=== PATIENT | male | born 1980 | race Caucasian/White ===

== ENCOUNTER 2017-02-18 09:45 | Emergency (ER) | payer BC, OTHER ==
[2017-02-18] MEDS ORDERED: IOHEXOL 300 MG/ML 75 ML VIAL. IV ONE (10:15)
[2017-02-18] MEDS ORDERED: methylPREDNISolone SOD SUCC PF 125 MG/2 ML VIAL. IV ONE (10:30)
[2017-02-18] MEDS ORDERED: CLINDAMYCIN 900MG PREMIX 50 ML IV ONE (10:30)
[2017-02-18 10:47] LABS: BASO # 0.2 x10^3/uL (0.0-0.2); BASO % 1 % (0-3); EOS # 0.3 x10^3/uL (0.0-0.7); EOS % 2 % (0-3); HEMATOCRIT 50.9 % (39.0-53.0); LYMPH # 2.6 x10^3/uL (1.0-4.8); LYMPH % 18 % (24-48); MEAN CORPUSCULAR HEMOGLOBIN 33 pg (25-35); MEAN CORPUSCULAR HGB CONC 35 g/dL (31-37); MEAN CORPUSCULAR VOLUME 94 fL (79-100); MONO # 1.1 x10^3/uL (0.0-1.1); MONO % 8 % (0-9); NEUT # 10.3 x10^3uL (1.8-7.7); NEUT % 71 % (31-73); PLATELET COUNT 320 x10^3/uL (140-400); RED BLOOD COUNT 5.42 x10^6/uL (4.30-5.70); RED CELL DISTRIBUTION WIDTH 13.7 % (11.5-14.5); WHITE BLOOD COUNT 14.4 x10^3/uL (4.0-11.0)
--- NOTE | 2017-02-18 10:50 | RAD ---
EXAM: Maxillofacial bone CT with intravenous contrast. HISTORY: Right subinsular swelling. TECHNIQUE: Computed tomographic images of the maxillofacial bones were obtained following the admission of 75 cc Omnipaque 300 intravenous contrast. One or more of the following individualized dose reduction techniques were utilized for this examination: 1. Automated exposure control. 2. Adjustment of the mA and/or kV according to patient size. 3. Use of iterative reconstruction technique. COMPARISON: None. FINDINGS: There is edema involving the right anterior mandibular and submandibular soft tissues and there is mild enlargement of right submental and submandibular lymph nodes. There is lucency surrounding the roots of the right first and second mandibular molars, secondary to periapical abscesses. There is an overlying defect within the outer alveolar cortex of the right mandible which communicates with a 2.2 cm region of hypodensity within the overlying soft tissues. These teeth are fractured or contained large caries. There is also lucency surrounding the roots of a partially absent left third mandibular molar. There are a few additional dental caries. The orbits are unremarkable. There is mild ethmoid sinus mucosal thickening. There is under pneumatization of the right frontal sinus and left mastoid air cells, a normal variant. The visualized portions of the brain and calvarium are unremarkable. The airway is widely patent. There is no hemodynamically significant stenosis within the carotid or vertebral arteries. There is cervical kyphosis. There is degenerative endplate remodeling with posterior central disc osteophyte complexes at C4-5 and C5-C6. IMPRESSION: Cellulitis within the right anterior mandibular and submental or soft tissues with associated mild segmental and submandibular lymphadenopathy, likely secondary to a 2.2 cm soft tissue small abscess communicating with periapical abscesses at the roots of the adjacent right and lower molars via a defect within the right mandibular outer alveolar cortex. These teeth are fractured or contain large caries. There are additional fractured teeth and dental caries and there is also lucency surrounding the roots of a partially absent left third lingular molar due to a periapical abscess.
--- NOTE | 2017-02-18 10:59 | PHYS DOC ---
General Chief Complaint: DENTAL PROBLEM Stated Complaint: DENTAL ABCESS Time Seen by MD: 09:53 Source: patient Exam Limitations: no limitations Problems: History of Present Illness Initial Comments Patient is a 36-year-old male who comes in the ED complaining of right lower molar pain and facial swelling. Patient states that earlier this week he developed a toothache associated with some previously fractured molars in his right lower jaw. He states that beginning last night he developed right sided lower jaw swelling which increased significantly overnight. He's had severe pain associated with the swelling in the affected teeth described as throbbing and severe worse with eating better with rest. He denies fever chills sweats or body aches, over-the- counter medications have not been controlling it. He has dental insurance and plans to follow up with dentist next week he denies difficulty with swallowing or breathing associated with the swelling. On arrival patient is afebrile he's also noted to be tachycardic 101 bpm patient admits to smoking cigarettes immediately prior to presenting to the emergency department. Patient also states that he took "an antibiotic" given to him by a friend, he describes as green and 4 times daily (likely cephalexin). Due to the severity of swelling and tachycardia lab and CT evaluation will be undertaken and the patient will receive a normal saline IV bolus 1 L as well as Solu-Medrol 125 mg IV and clindamycin 900 mg IV. Timing/Duration: gradual, last week Severity: severe Location: mouth, facial, dental Prearrival Treatment: over the counter meds Modifying Factors: improves with other Associated Symptoms: facial pain/swelling, tooth pain Allergies: Coded Allergies: No Known Drug Allergies (Unverified , 02/18/17) Past Medical History Medical History: other (factor V Leiden deficiency) Surgical History: noncontributory Social History Smoker: cigarettes Alcohol: heavy Drugs: none Constitutional: denies chills, denies diaphoresis, denies fever, denies malaise Eyes: denies blindness, denies blurred vision, denies drainage, denies decreased acuity Ears: denies dizziness, denies pain, denies tinnitus Nose: denies clots, denies congestion, denies epistaxis Mouth: see HPI Throat: denies pain, denies swelling, denies discharge, denies neck stiffness, denies painful swallowing, denies difficulty with fluids Respiratory: denies cough, denies shortness of breath, denies wheezing Cardiovascular: denies chest pain, denies palpitations, denies syncope Gastrointestinal: denies abdominal pain, denies nausea, denies vomiting Musculoskeletal: denies back pain, denies muscle pain, denies neck pain Neurological: denies headache, denies numbness, denies paresthesia Physical Exam General Appearance: WD/WN, no apparent distress Eyes: bilateral eye normal inspection, bilateral eye PERRL, bilateral eye EOMI Ears: bilateral ear auricle normal, bilateral ear canal normal Nose: normal inspection Mouth/Throat: dental tenderness, mandibular swelling, other (right lower molar caries with gingival swelling and tenderness no purulence noted. 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 PHYSICIAN: BANDAR LAM DO REASON: R mandibular swelling r/o osteomyelitis PROCEDURE: CT MAXILLOFACIAL W/CONTRAST EXAM: Maxillofacial bone CT with intravenous contrast. HISTORY: Right subinsular swelling. TECHNIQUE: Computed tomographic images of the maxillofacial bones were obtained following the admission of 75 cc Omnipaque 300 intravenous contrast. One or more of the following individualized dose reduction techniques were utilized for this examination: 1. Automated exposure control. 2. Adjustment of the mA and/or kV according to patient size. 3. Use of iterative reconstruction technique. COMPARISON: None. FINDINGS: There is edema involving the right anterior mandibular and submandibular soft tissues and there is mild enlargement of right submental and submandibular lymph nodes. There is lucency surrounding the roots of the right first and second mandibular molars, secondary to periapical abscesses. There is an overlying defect within the outer alveolar cortex of the right mandible which communicates with a 2.2 cm region of hypodensity within the overlying soft tissues. These teeth are fractured or contained large caries. There is also lucency surrounding the roots of a partially absent left third mandibular molar. There are a few additional dental caries. The orbits are unremarkable. There is mild ethmoid sinus mucosal thickening. There is under pneumatization of the right frontal sinus and left mastoid air cells, a normal variant. The visualized portions of the brain and calvarium are unremarkable. The airway is widely patent. There is no hemodynamically significant stenosis within the carotid or vertebral arteries. There is cervical kyphosis. There is degenerative endplate remodeling with posterior central disc osteophyte complexes at C4-5 and C5-C6. IMPRESSION: Cellulitis within the right anterior mandibular and submental or soft tissues with associated mild segmental and submandibular lymphadenopathy, likely secondary to a 2.2 cm soft tissue small abscess communicating with periapical abscesses at the roots of the adjacent right and lower molars via a defect within the right mandibular outer alveolar cortex. These teeth are fractured or contain large caries. There are additional fractured teeth and dental caries and there is also lucency surrounding the roots of a partially absent left third lingular molar due to a periapical abscess. DICTATED AND SIGNED BY: WILBERT CURRY MD DATE: 02/18/17 1036 CC: VELMA TINOCO; BANDAR LAM DO ~ Mild leukocytosis and elevated ALT/AST noted, lactic acid and sedimentation rate normal. 1217: I discussed findings at length with the patient. I offered him observation admission for intravenous antibiotics and steroids and monitoring. Patient refuses stating he would like to try conservative therapy at home initially. I discussed signs and symptoms to monitor as well as urgent indications to return to the department. I discussed [id number] and prescription medications, smoking cessation, and close follow-up on Monday with Chaitanya Tinoco. I discussed time off work and [facility] dental evaluation. Patient's questions were answered to his satisfaction and he expressed agreement and understanding with the treatment plan. Impression: Dental abscess Facial cellulitis Elevated liver function tests Leukocytosis Tobaccoism Departure Time of Disposition: 12:04 Disposition: 01 HOME, SELF-CARE Diagnosis: dental abscess with facial cellulitis, tobaccoism, Condition: STABLE Patient Instructions: Dental Abscess Additional Instructions: Aggressive hydration with gatorade or water. Listerine gargles three times daily after brushing/flossing. OTC ibuprofen for baseline pain. Stop smoking, seek medical assistance if necessary. No alcohol with pain medications. Rx: augmentin, prednisone, percocet 7.5mg #20 Take medications separately and with food to avoid GI upset, nausea, and vomitting. OTC stool softeners to avoid opiate associated constipation. OTC probiotics or cultured yogurt (danimals, gogurt) daily to replace gut rowdy and avoid severe diarrhea from augmentin. Off work thru Monday. Follow up with Lola Tinoco Monday for recheck. You must follow up with dentist to resolve this condition, call Monday morning to schedule next available appointment. Return to ED with new or changing symptoms. BANDAR LAM DO Feb 18, 2017 10:59
[2017-02-18 11:03] LABS: ALBUMIN 3.9 g/dL (3.4-5.0); CALCIUM 9.3 mg/dL (8.5-10.1); CREATININE 0.9 mg/dL (0.7-1.3); GFR 96.6; TOTAL BILIRUBIN 0.9 mg/dL (0.2-1.0); TOTAL PROTEIN 7.8 g/dL (6.4-8.2)
[2017-02-18 11:04] LABS: POTASSIUM 4.4 mmol/L (3.5-5.1)
[2017-02-18 11:55] LABS: SEDIMENTATION RATE 8 (0-15)
[2017-02-18] MEDS ORDERED: OXYC-327 PO (12:03)
[2017-02-18] MEDS ORDERED: PRED20TA PO (12:03)
[2017-02-18] MEDS ORDERED: AMOX1TAB61 PO (12:03)
[2017-02-18 12:13] VITALS: BP 142/82
== END 2017-02-18 12:20 | disposition home or self-care (01) ==
LOC: ER 09:45
DX: K04.7 Periapical abscess without sinus (principal); L03.211 Cellulitis of face; F17.210 Nicotine dependence, cigarettes, uncomplicated; R79.89 Other specified abnormal findings of blood chemistry; D72.829 Elevated white blood cell count, unspecified; D68.2 Hereditary deficiency of other clotting factors; F10.10 Alcohol abuse, uncomplicated
CPT/HCPCS: 36415; 70487; 80053; 83605; 85025; 85651; 87040; 96365; 96375; 96376; 99285; J2930; J3010; J3490

== ENCOUNTER 2017-11-12 13:20 | Emergency (ER) | payer BC ==
[~2017-11-12] VITALS: Ht 180.3 cm; Wt 104.3 kg
[~2017-11-12 13:20] MED LIST: AMOX1TAB61 PO; OXYC-327 PO; PRED20TA PO
--- NOTE | 2017-11-12 13:59 | EKG ---
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
[2017-11-12 14:08] LABS: BASO # 0.1 x10^3/uL (0.0-0.2); BASO % 1 % (0-3); EOS # 0.3 x10^3/uL (0.0-0.7); EOS % 3 % (0-3); HEMATOCRIT 53.8 % (39.0-53.0); HEMOGLOBIN 18.8 g/dL (13.0-17.5); LYMPH # 2.7 x10^3/uL (1.0-4.8); LYMPH % 21 % (24-48); MEAN CORPUSCULAR HEMOGLOBIN 34 pg (25-35); MEAN CORPUSCULAR HGB CONC 35 g/dL (31-37); MEAN CORPUSCULAR VOLUME 96 fL (79-100); MONO # 1.3 x10^3/uL (0.0-1.1); MONO % 10 % (0-9); NEUT # 8.7 x10^3uL (1.8-7.7); NEUT % 66 % (31-73); PLATELET COUNT 306 x10^3/uL (140-400); RED BLOOD COUNT 5.59 x10^6/uL (4.30-5.70); RED CELL DISTRIBUTION WIDTH 13.9 % (11.5-14.5); WHITE BLOOD COUNT 13.2 x10^3/uL (4.0-11.0)
[2017-11-12 14:52] LABS: BARBITURATES NEG (NEG); BENZODIAZEPINES NEG (NEG); CANNABINOIDS POS (NEG); COCAINE NEG (NEG); METHADONE NEG (NEG); OPIATES NEG (NEG); PHENCYCLIDINE NEG (NEG)
[2017-11-12 14:53] LABS: AMPHETAMINE/METHAMPHETAMINE NEG (NEG)
[2017-11-12 15:03] LABS: BACTERIA,URINE 0 /HPF (0-FEW); BILIRUBIN,URINE NEG (NEG); CLARITY,URINE CLEAR; COLOR,URINE ORANGE; GLUCOSE,URINE NEG (NEG); NITRITE,URINE NEG (NEG); RBC,URINE OCC /HPF (0-2); SQUAMOUS EPITHELIAL CELL,UR OCC /LPF; UROBILINOGEN,URINE 2 mg/dL (0.2 mg/dL); WBC,URINE RARE /HPF (0-4)
[2017-11-12] MEDS ORDERED: IV NORMAL SALINE 1,000ML 1,000 ML IV ONE (15:30)
[2017-11-12] MEDS ORDERED: IPRATRPIUM/ALBUTEROL 0.5/2.5MG 3 ML NEBU. NEB ONE (15:30)
[2017-11-12] MEDS ORDERED: KETOROLAC 30 MG/ML VIAL. IV ONE (15:30)
[2017-11-12 15:37] LABS: ALBUMIN 3.8 g/dL (3.4-5.0); ALBUMIN/GLOBULIN RATIO 0.8 (1.0-1.7); CALCIUM 9.3 mg/dL (8.5-10.1); TOTAL BILIRUBIN 2.1 mg/dL (0.2-1.0); TOTAL PROTEIN 8.4 g/dL (6.4-8.2)
[2017-11-12 15:38] LABS: POTASSIUM 4.4 mmol/L (3.5-5.1)
[2017-11-12] MEDS ORDERED: CONTRAST GIVEN MC PRN (16:15)
[2017-11-12] MEDS ORDERED: IOHEXOL 300 MG/ML 75 ML VIAL. IV ONE (16:30)
--- NOTE | 2017-11-12 16:52 | RAD ---
Examination: CT angiography chest History: History of shortness of breath, history of blood clots, right-sided chest pain Exposure: One or more of the following individualized dose reduction techniques were utilized for this examination: 1. Automated exposure control 2. Adjustment of the mA and/or kV according to patient size 3. Use of iterative reconstruction technique TECHNIQUE: Axial CT angiography images of chest were performed with IV contrast. Coronal and sagittal deformities are performed FINDINGS: The visualized thyroid gland grossly appears unremarkable central airways are patent The heart size grossly appears unremarkable. The caliber of the aorta grossly appears unremarkable There is no evidence of filling defect identified in the main pulmonary arterial trunk. There are multiple filling defects identified in the right lower lobe pulmonary arterial branches. No evidence of filling defects identified in the right upper lobe, right middle lobe, left upper lobe and left lower lobe pulmonary arterial branches There multiple wedge-shaped airspace opacities identified in the right lower lobe of the lung abutting the pleura. No evidence of pleural effusion The visualized liver, spleen, adrenals grossly appears unremarkable Mild degenerative changes thoracic spine IMPRESSION: 1. Multiple filling defects in the right lower lobe pulmonary arterial branches suspicious for multiple pulmonary emboli. There are wedge-shaped airspace opacities identified in the right lower lobe of the lung abutting the pleura probably infarcts. was informed recommendation. Electronically signed by: Jaime Dahl MD (11/12/2017 4:48 PM) [facility]
[2017-11-12] MEDS ORDERED: MORPHINE SULFATE 4 MG/ML DISP.SYRIN. IV ONE (17:00)
--- NOTE | 2017-11-12 17:36 | PHYS DOC ---
Past History Past Medical History: Other Past Surgical History: No Surgical History Alcohol Use: Heavy Drug Use: Marijuana Adult General Chief Complaint Chief Complaint: SHORTNESS OF BREATH HPI HPI 37-year-old male patient with history of factor 5 deficiency and history of previous DVT and PE on Eliquis complaining of right lower chest pain with radiation to his back for the last 2 days as a constant pain episode of shortness of breath [dictation without fever and chills, nausea and vomiting, injury. Patient complaining of increasing of pain with activity and rated his pain 9/10. Patient also complaining of left lower extremity pain at the same time without history of recent immobilization. Patient denies focal neuro deficit, fever and chills, urinary symptoms, diarrhea and constipation. Review of Systems Review of Systems Constitutional: Denies fever or chills [] Eyes: Denies change in visual acuity, redness, or eye pain [] HENT: Denies nasal congestion or sore throat [] Respiratory: Reports dry cough and shortness of breath [] Cardiovascular: No additional information not addressed in HPI [] GI: Denies abdominal pain, nausea, vomiting, bloody stools or diarrhea [] : Denies dysuria or hematuria [] Musculoskeletal: Denies back pain or joint pain [] Integument: Denies rash or skin lesions [] Neurologic: Denies headache, focal weakness or sensory changes [] Endocrine: Denies polyuria or polydipsia [] All other systems were reviewed and found to be within normal limits, except as documented in this note. Current Medications Current Medications Current Medications Medications (Trade) Dose Ordered Sig/Sylvester Start Time Stop Time Status Last Admin Dose Admin Albuterol/ Ipratropium (Duoneb) 3 ml 1X ONCE 11/12/17 15:30 11/12/17 15:34 DC 11/12/17 16:01 3 ML Enoxaparin Sodium (Lovenox 100mg Syringe) 100 mg 1X ONCE 11/12/17 17:45 11/12/17 17:46 Info (Do NOT chart on this entry -- for MONITORING) 1 each PRN DAILY PRN 11/12/17 16:15 11/14/17 16:14 Iohexol (Omnipaque 300 Mg/ml) 75 ml 1X ONCE 11/12/17 16:30 11/12/17 16:31 DC 11/12/17 16:24 75 ML Ketorolac Tromethamine (Toradol) 30 mg 1X ONCE 11/12/17 15:30 11/12/17 15:34 DC 11/12/17 15:52 30 MG Morphine Sulfate (Morphine 4mg Syringe) 4 mg 1X ONCE 11/12/17 17:00 11/12/17 17:01 DC 11/12/17 17:00 4 MG Sodium Chloride 1,000 ml @ 1,000 mls/hr 1X ONCE 11/12/17 15:30 11/12/17 16:29 DC 11/12/17 15:51 1,000 MLS/HR Allergies Allergies Allergies Coded Allergies Type Severity Reaction Last Updated Verified No Known Drug Allergies 02/18/17 No Physical Exam Physical Exam Constitutional: Well developed, well nourished, mild distress, non-toxic appearance. [] HENT: Normocephalic, atraumatic, bilateral external ears normal, oropharynx moist, no oral exudates, nose normal. [] Eyes: PERRLA, EOMI, conjunctiva normal, no discharge. [] Neck: Normal range of motion, no tenderness, supple, no stridor. [] Cardiovascular: Tachycardia, no murmur [] Lungs & Thorax: Bilateral breath sounds clear to auscultation [] Abdomen: Bowel sounds normal, soft, no tenderness, no masses, no pulsatile masses. [] Skin: Warm, dry, no erythema, no rash. [] Back: No tenderness, no CVA tenderness. [] Extremities: No tenderness, no cyanosis, no clubbing, ROM intact, no edema. [] Neurologic: Alert and oriented X 3, normal motor function, normal sensory function, no focal deficits noted. [] Psychologic: Affect normal, judgement normal, mood normal. [] Current Patient Data Vital Signs Vital Signs Date Time Temp Pulse Resp B/P (MAP) Pulse Ox O2 Delivery O2 Flow Rate FiO2 11/12/17 16:40 109 18 140/80 (100) 98 Room Air 11/12/17 13:25 98.1 Lab Results Laboratory Tests Test 11/12/17 13:53 11/12/17 14:27 11/12/17 15:10 White Blood Count 13.2 x10^3/uL (4.0-11.0) H Red Blood Count 5.59 x10^6/uL (4.30-5.70) Hemoglobin 18.8 g/dL (13.0-17.5) H Hematocrit 53.8 % (39.0-53.0) H Mean Corpuscular Volume 96 fL (79-100) Mean Corpuscular Hemoglobin 34 pg (25-35) Mean Corpuscular Hemoglobin Concent 35 g/dL (31-37) Red Cell Distribution Width 13.9 % (11.5-14.5) Platelet Count 306 x10^3/uL (140-400) Neutrophils (%) (Auto) 66 % (31-73) Lymphocytes (%) (Auto) 21 % (24-48) L Monocytes (%) (Auto) 10 % (0-9) H Eosinophils (%) (Auto) 3 % (0-3) Basophils (%) (Auto) 1 % (0-3) Neutrophils # (Auto) 8.7 x10^3uL (1.8-7.7) H Lymphocytes # (Auto) 2.7 x10^3/uL (1.0-4.8) Monocytes # (Auto) 1.3 x10^3/uL (0.0-1.1) H Eosinophils # (Auto) 0.3 x10^3/uL (0.0-0.7) Basophils # (Auto) 0.1 x10^3/uL (0.0-0.2) Urine Collection Type Unknown Urine Color [place] Urine Clarity Clear Urine pH 5.5 Urine Specific [place] 1.020 Urine Protein 30 mg/dl (NEG-TRACE) Urine Glucose (UA) Neg mg/dL (NEG) Urine Ketones (Stick) Neg mg/dL (NEG) Urine Blood Trace (NEG) Urine Nitrite Neg (NEG) Urine Bilirubin Neg (NEG) Urine Urobilinogen Dipstick 2 mg/dL (0.2 mg/dL) Urine Leukocyte Esterase Neg (NEG) Urine RBC Occ /HPF (0-2) Urine WBC Rare /HPF (0-4) Urine Squamous Epithelial Cells Occ /LPF Urine Bacteria 0 /HPF (0-FEW) Urine Mucus Slight /LPF Urine Opiates Screen Neg (NEG) Urine Methadone Screen Neg (NEG) Urine Barbiturates Neg (NEG) Urine Phencyclidine Screen Neg (NEG) Urine Amphetamine/Methamphetamine Neg (NEG) Urine Benzodiazepines Screen Neg (NEG) Urine Cocaine Screen Neg (NEG) Urine Cannabinoids Screen Pos (NEG) Urine Ethyl Alcohol Neg (NEG) D-Dimer (Елена) 4.39 mg/L (0.00-0.50) H Sodium Level 134 mmol/L (136-145) L Potassium Level 4.4 mmol/L (3.5-5.1) Chloride Level 99 mmol/L (98-107) Carbon Dioxide Level 25 mmol/L (21-32) Anion Gap 10 (6-14) Blood Urea Nitrogen 7 mg/dL (8-26) L Creatinine 1.0 mg/dL (0.7-1.3) Estimated GFR (Cockcroft-Gault) 85.0 BUN/Creatinine Ratio 7 (6-20) Glucose Level 92 mg/dL (70-99) Calcium Level 9.3 mg/dL (8.5-10.1) Total Bilirubin 2.1 mg/dL (0.2-1.0) H Aspartate Amino Transferase (AST) 95 U/L (15-37) H Alanine Aminotransferase (ALT) 102 U/L (16-63) H Alkaline Phosphatase 127 U/L (46-116) H Troponin I Quantitative < 0.017 ng/mL (0-0.055) XP-Lgm-E-Type Natriuretic Peptide 45 pg/mL (0-124) Total Protein 8.4 g/dL (6.4-8.2) H Albumin 3.8 g/dL (3.4-5.0) Albumin/Globulin Ratio 0.8 (1.0-1.7) L Ethyl Alcohol Level < 10 mg/dL (0-10) EKG EKG EKG interpreted by me. EKG at 1356 showed sinus rhythm at rate of 93, poor R wave practicing in anteroseptal leads, no acute distress and T-wave abnormalities Radiology/Procedures Radiology/Procedures [[address] [address] IMAGING REPORT Signed PATIENT: SHRUTI SANTACRUZ ACCOUNT: [id number] : 1980 LOCATION: ER AGE: 37 SEX: M EXAM STATUS: PRE ER ORD. PHYSICIAN: JAIRO THIBODEAUX MD REASON: right-sided chest pain with elevation of d-dimer, elevation of li PROCEDURE: CT ANGIOGRAPHY CHEST Examination: CT angiography chest History: History of shortness of breath, history of blood clots, right-sided chest pain Exposure: One or more of the following individualized dose reduction techniques were utilized for this examination: 1. Automated exposure control 2. Adjustment of the mA and/or kV according to patient size 3. Use of iterative reconstruction technique TECHNIQUE: Axial CT angiography images of chest were performed with IV contrast. Coronal and sagittal deformities are performed FINDINGS: The visualized thyroid gland grossly appears unremarkable central airways are patent The heart size grossly appears unremarkable. The caliber of the aorta grossly appears unremarkable There is no evidence of filling defect identified in the main pulmonary arterial trunk. There are multiple filling defects identified in the right lower lobe pulmonary arterial branches. No evidence of filling defects identified in the right upper lobe, right middle lobe, left upper lobe and left lower lobe pulmonary arterial branches There multiple wedge-shaped airspace opacities identified in the right lower lobe of the lung abutting the pleura. No evidence of pleural effusion The visualized liver, spleen, adrenals grossly appears unremarkable Mild degenerative changes thoracic spine IMPRESSION: 1. Multiple filling defects in the right lower lobe pulmonary arterial branches suspicious for multiple pulmonary emboli. There are wedge-shaped airspace opacities identified in the right lower lobe of the lung abutting the pleura probably infarcts. was informed recommendation. Electronically signed by: Jaime Dahl MD (11/12/2017 4:48 PM) [facility] DICTATED AND SIGNED BY: JAIME DAHL MD DATE: 11/12/17 0600 CC: JAIRO THIBODEAUX MD; VEMLA TINOCO ~ ] Course & Med Decision Making Course & Med Decision Making Pertinent Labs and Imaging studies reviewed. (See chart for details) Evaluation of patient in ER showed 37-year-old male patient with history of factor V deficiency and previous PE and DVT and complaining of right chest pain for 3 days. Patient admitted that he did not take his Eliquis for the last 1 month patient had elevation of d-dimer and CT of chest showed multiple right large emboli and possible pulmonary infarction. Patient treated with IV fluid, pain medication, substance Lovenox. Dr. Baltazar informed at 1710 and recommended to transfer patient to [facility] for possible Angelita filter placement. Patient informed about the test results and plan of care and transfer. [] Dragon Disclaimer Dragon Disclaimer This electronic medical record was generated, in whole or in part, using a voice recognition dictation system. Departure Departure: Impression: Primary Impression: Pulmonary embolism Additional Impressions: Pulmonary infarction Right-sided chest pain Elevated liver function tests Marijuana abuse Disposition: XFER [facility] ([facility] at 1710) Admitting Physician: Pastor Baltazar Condition: GUARDED Referrals: VELMA TINOCO (PCP) Problem Qualifiers JAIRO THIBODEAUX MD Nov 12, 2017 17:36
[2017-11-12 17:41] VITALS: BP 135/79
[2017-11-12] MEDS ORDERED: ENOXAPARIN ** NOTE DOSE ** SYRINGE SQ ONE (17:45)
== END 2017-11-12 20:05 | disposition short-term general hospital (02) ==
LOC: ER 13:20
DX: I26.99 Other pulmonary embolism without acute cor pulmonale (principal); R07.89 Other chest pain; R79.89 Other specified abnormal findings of blood chemistry; F12.10 Cannabis abuse, uncomplicated; F10.20 Alcohol dependence, uncomplicated
CPT/HCPCS: 36415; 71275; 80053; 80307; 81001; 83880; 84484; 85025; 85379; 93005; 94640; 96372; 96374; 96375; 99285; G0480; J1650; J1885; J2270; J7620; Q9967; G0479; J7030

== ENCOUNTER 2019-02-25 07:08 | Emergency (ER) | payer BC ==
[~2019-02-25] VITALS: Ht 180.3 cm; Wt 104.3 kg
[~2019-02-25 07:08] MED LIST changes: -OXYC-327 PO; +OXYC1TAB19 PO
[2019-02-25] MEDS ORDERED: 0.9 % SODIUM CHLORIDE 10 ML DISP.SYRIN. IV PRN (07:45)
[2019-02-25] MEDS ORDERED: NOREPINEPHRINE BITARTRATE 8 MG in IV NORMAL SALINE 250ML 250 ML IV PRN (07:45)
[2019-02-25] MEDS ORDERED: VANCOMYCIN PER PHARMACY MC PRN (07:45)
[2019-02-25] MEDS ORDERED: VANCOMYCIN 2 GM in IV NORMAL SALINE 500ML 500 ML IV ONE (07:45)
--- NOTE | 2019-02-25 07:53 | PHYS DOC ---
Past History Past Medical History: Other Additional Past Medical Histor: Factor 5, PE's, DVT Left Leg stent Past Surgical History: Other Additional Past Surgical Histo: Left leg stent Smoking: Cigarettes Alcohol Use: Heavy Additional Alcohol Information: 1/5 of liquor every 2 days Drug Use: None Adult General Chief Complaint Chief Complaint: GROIN PAIN HPI HPI Patient is a 38 year old M who presents with 3 months of right-sided scrotal pain. This pain has been associated with intermittent swelling and redness. Over the past 3 months he states that this wound has regularly drained thick yellowish colored foul smelling fluid. His symptoms were relieved by drainage. Over the past 3 days this wound has not been draining. He describes moderate constant dull pain on the right side of his scrotum radiating towards his rectum. He denies difficulty with urination or bowel movements. He has no abdominal pain. He does describe sweats and chills without any objective fever. He does have a history of factor V Leiden and has not been taking his anticoagulation due to expense. He is a daily smoker. He is also a daily drinker, drinking 1/5 of liquor every 2 days approximately. His last drink was last night. He states that he has gone 3 days without drinking in the past year. He has no reported history of withdrawal. Review of Systems Review of Systems Constitutional: Negative except history of present illness Eyes: Denies change in visual acuity, redness, or eye pain [] HENT: Denies nasal congestion or sore throat [] Respiratory: Denies cough or shortness of breath [] Cardiovascular: No additional information not addressed in HPI [] GI: Denies abdominal pain, nausea, vomiting, bloody stools or diarrhea [] : Denies dysuria or hematuria [] Musculoskeletal: Denies back pain or joint pain [] Integument: Except history of present illness Neurologic: Denies headache, focal weakness or sensory changes [] Endocrine: Denies polyuria or polydipsia [] All other systems were reviewed and found to be within normal limits, except as documented in this note. Family History Family History No pertinent medical history was reported Current Medications Current Medications Current Medications Medications (Trade) Dose Ordered Sig/Sylvester Start Time Stop Time Status Last Admin Dose Admin Fentanyl Citrate (Fentanyl 2ml Vial) 100 mcg 1X ONCE 02/25/19 07:45 02/25/19 07:46 UNV Norepinephrine Bitartrate 8 mg/ Sodium Chloride 258 ml @ 0 mls/hr CONT PRN 02/25/19 07:45 UNV Sodium Chloride (Normal Saline Flush) 10 ml QSHIFT PRN 02/25/19 07:45 Vancomycin HCl (Vanco Per Pharmacy) 1 each 1X ONCE 02/25/19 07:45 02/25/19 07:46 UNV Allergies Allergies Allergies Coded Allergies Type Severity Reaction Last Updated Verified No Known Drug Allergies 02/18/17 No Physical Exam Physical Exam Constitutional: Well developed, well nourished, no acute distress, non-toxic appearance. [] HENT: Normocephalic, atraumatic, oropharynx moist, no oral exudates, nose normal. [] Eyes: EOMI, conjunctiva normal, no discharge. [] Neck: Normal range of motion, no tenderness, supple, no stridor. [] Cardiovascular:Heart rate regular rhythm, Lungs & Thorax: Bilateral breath sounds clear to auscultation [] Abdomen: Bowel sounds normal, soft, no tenderness, no masses, no pulsatile masses. [] Skin: Right sided scrotal edema with moderate erythema and induration extending to the perineum and perirectal area. Extremities: No tenderness, no cyanosis, no clubbing, ROM intact, no edema. [] Neurologic: Alert and oriented X 3, normal motor function, normal sensory function, no focal deficits noted. [] Psychologic: Affect normal, judgement normal, mood normal. [] Current Patient Data Vital Signs Vital Signs Date Time Temp Pulse Resp B/P (MAP) Pulse Ox O2 Delivery O2 Flow Rate FiO2 02/25/19 07:30 97.9 98 18 99 Lab Results Laboratory Tests Test 02/25/19 07:42 02/25/19 08:04 White Blood Count 17.1 x10^3/uL (4.0-11.0) Red Blood Count 5.39 x10^6/uL (4.30-5.70) Hemoglobin 17.8 g/dL (13.0-17.5) Hematocrit 52.6 % (39.0-53.0) Mean Corpuscular Volume 98 fL (79-100) Mean Corpuscular Hemoglobin 33 pg (25-35) Mean Corpuscular Hemoglobin Concent 34 g/dL (31-37) Red Cell Distribution Width 13.8 % (11.5-14.5) Platelet Count 303 x10^3/uL (140-400) Neutrophils (%) (Auto) 76 % (31-73) Lymphocytes (%) (Auto) 13 % (24-48) Monocytes (%) (Auto) 8 % (0-9) Eosinophils (%) (Auto) 2 % (0-3) Basophils (%) (Auto) 1 % (0-3) Neutrophils # (Auto) 13.0 x10^3uL (1.8-7.7) Lymphocytes # (Auto) 2.3 x10^3/uL (1.0-4.8) Monocytes # (Auto) 1.4 x10^3/uL (0.0-1.1) Eosinophils # (Auto) 0.3 x10^3/uL (0.0-0.7) Basophils # (Auto) 0.1 x10^3/uL (0.0-0.2) Sodium Level 141 mmol/L (136-145) Potassium Level 4.2 mmol/L (3.5-5.1) Chloride Level 103 mmol/L (98-107) Carbon Dioxide Level 24 mmol/L (21-32) Anion Gap 14 (6-14) Blood Urea Nitrogen 7 mg/dL (8-26) Creatinine 1.0 mg/dL (0.7-1.3) Estimated GFR (Cockcroft-Gault) 84.5 BUN/Creatinine Ratio 7 (6-20) Glucose Level 110 mg/dL (70-99) Lactic Acid Level 1.5 mmol/L (0.4-2.0) Calcium Level 9.1 mg/dL (8.5-10.1) Total Bilirubin 1.3 mg/dL (0.2-1.0) Aspartate Amino Transf (AST/SGOT) 39 U/L (15-37) Alanine Aminotransferase (ALT/SGPT) 65 U/L (16-63) Alkaline Phosphatase 94 U/L (46-116) Total Protein 7.5 g/dL (6.4-8.2) Albumin 3.9 g/dL (3.4-5.0) Albumin/Globulin Ratio 1.1 (1.0-1.7) Urine Collection Type Unknown Urine Color [place] Urine Clarity Clear Urine pH 6.0 Urine Specific [place] 1.025 Urine Protein 30 mg/dl (NEG-TRACE) Urine Glucose (UA) Neg mg/dL (NEG) Urine Ketones (Stick) Neg mg/dL (NEG) Urine Blood Neg (NEG) Urine Nitrite Neg (NEG) Urine Bilirubin Neg (NEG) Urine Urobilinogen Dipstick 0.2 mg/dL (0.2 mg/dL) Urine Leukocyte Esterase Neg (NEG) Urine RBC 1-2 /HPF (0-2) Urine WBC 1-4 /HPF (0-4) Urine Squamous Epithelial Cells Few /LPF Urine Bacteria 0 /HPF (0-FEW) Urine Mucus Marked /LPF EKG EKG [] Radiology/Procedures Radiology/Procedures [] Impressions: PATIENT: BRIAN SANTACRUZ ACCOUNT: [id number] : 1980 LOCATION: ER AGE: 38 SEX: M EXAM STATUS: REG ER ORD. PHYSICIAN: BEE CAMPBELL MD REASON: abscess, ACCESS ABSCESS PER MILLER HEAD WET PROCESS: TESTICULAR/SCROTUM EXAM: Soft tissue ultrasound, perineum. HISTORY: Draining collection inferior to right testicle. COMPARISON: None. FINDINGS: Sonographic evaluation of the site of concern inferior/posterior to the right testicle was performed. This reveals an immediately subcutaneous hypoechoic collection measuring 4.6 x 1.9 x 1.8 cm. A communication to the skin surface is not identified currently. There is no perfusion within the collection. Hyperemia surrounding it is consistent with inflammation. Limited images of the right hemiscrotum reveal no hydrocele. The right testicle is grossly unremarkable. IMPRESSION: 1. 4.6 x 1.9 x 1.8 cm immediately subcutaneous collection along the perineum consistent with an abscess. This does not appear associated with the right hemiscrotum on these images. Electronically signed by: Flavio Sun MD (02/25/2019 10:19 AM) [facility] Course & Med Decision Making Course & Med Decision Making Pertinent Labs and Imaging studies reviewed. (See chart for details) 0750: Brian has multiple complicating factors including untreated factor V Leiden with history of clot, alcoholism and tobaccoism. This is a chronic issue with acute worsening. The diagnosis of infected sebaceous cyst with surrounding cellulitis is considered. All shunt will be obtained. Plan to admit for IV antib iotics and surgical consultation. 0830: Patient was reevaluated. Pain is well controlled. Vital signs stable. Care plan was discussed with his . All questions and concerns were addressed. 0900: Labs were reviewed. Awaiting ultrasound results. Patient pain has recurred to a mild level. We'll give fentanyl 50 g IV. Plan to admit for IV antibiotics versus transfer for surgical management pending ultrasound report 0930: VS stable. contacted doc for transfer. US report showed an abscess 1000: Transfer was declined. Hospitalist at [facility] states that Dr. Baltazar is his PCP. VS continue to be stable. He continues to require pain medication. Pt states that Dr. Baltazar is not his PCP 1030: Transfer was called for at [facility] 1100: Transfer was declined. Hospitalist at [facility] states that Urology was required and No urology services were available. Transfer was called for at [facility] as requested. 1130: [facility] did return the transfer call. Flagyl was added. 1200: Pending return call for bed placement from [facility]. VS continue to be stable. Pain is well controlled. 1230: Bed assignment was called to [facility] from [facility]. Pt was transferred in stable condition Dragon Disclaimer Dragon Disclaimer This electronic medical record was generated, in whole or in part, using a voice recognition dictation system. Departure Departure: Impression: Primary Impression: Cellulitis of scrotum Additional Impressions: Tobacco abuse Alcohol abuse Factor V Leiden Disposition: 05 TRANSFER OTHER Condition: STABLE Referrals: VELMA TINOCO (PCP) Problem Qualifiers BEE CAMPBELL MD Feb 25, 2019 07:53
[2019-02-25] MEDS ORDERED: VANCOMYCIN 1 GM VIAL. ONE (07:56)
[2019-02-25] MEDS ORDERED: IV NORMAL SALINE 500ML 500 ML ONE (07:56)
[2019-02-25 08:05] LABS: BASO # 0.1 x10^3/uL (0.0-0.2); BASO % 1 % (0-3); EOS # 0.3 x10^3/uL (0.0-0.7); EOS % 2 % (0-3); HEMATOCRIT 52.6 % (39.0-53.0); HEMOGLOBIN 17.8 g/dL (13.0-17.5); LYMPH # 2.3 x10^3/uL (1.0-4.8); LYMPH % 13 % (24-48); MEAN CORPUSCULAR HEMOGLOBIN 33 pg (25-35); MEAN CORPUSCULAR HGB CONC 34 g/dL (31-37); MEAN CORPUSCULAR VOLUME 98 fL (79-100); MONO # 1.4 x10^3/uL (0.0-1.1); MONO % 8 % (0-9); NEUT % 76 % (31-73); PLATELET COUNT 303 x10^3/uL (140-400); RED BLOOD COUNT 5.39 x10^6/uL (4.30-5.70); RED CELL DISTRIBUTION WIDTH 13.8 % (11.5-14.5); WHITE BLOOD COUNT 17.1 x10^3/uL (4.0-11.0)
[2019-02-25 08:20] LABS: ALBUMIN 3.9 g/dL (3.4-5.0); ALBUMIN/GLOBULIN RATIO 1.1 (1.0-1.7); CALCIUM 9.1 mg/dL (8.5-10.1); GFR 84.5; POTASSIUM 4.2 mmol/L (3.5-5.1); TOTAL BILIRUBIN 1.3 mg/dL (0.2-1.0); TOTAL PROTEIN 7.5 g/dL (6.4-8.2)
[2019-02-25 08:31] LABS: BACTERIA,URINE 0 /HPF (0-FEW); BILIRUBIN,URINE NEG (NEG); CLARITY,URINE CLEAR; COLOR,URINE AMBER; GLUCOSE,URINE NEG (NEG); NITRITE,URINE NEG (NEG); SQUAMOUS EPITHELIAL CELL,UR FEW /LPF; UROBILINOGEN,URINE 0.2 mg/dL (0.2 mg/dL)
[2019-02-25 09:40] LABS: % ATYL 5 % (0-0); % BANDS 3 % (0-9); % BASOS 1 % (0-3); % LYMPHS 10 % (24-48); % MONOS 6 % (0-10); % SEGS 75 % (35-66)
[2019-02-25 09:44] LABS: PLT ESTIMATE ADEQUATE (ADEQUATE)
[2019-02-25] MEDS ORDERED: IV NORMAL SALINE 1,000ML 1,000 ML IV ONE (10:00)
--- NOTE | 2019-02-25 10:22 | RAD ---
EXAM: Soft tissue ultrasound, perineum. HISTORY: Draining collection inferior to right testicle. COMPARISON: None. FINDINGS: Sonographic evaluation of the site of concern inferior/posterior to the right testicle was performed. This reveals an immediately subcutaneous hypoechoic collection measuring 4.6 x 1.9 x 1.8 cm. A communication to the skin surface is not identified currently. There is no perfusion within the collection. Hyperemia surrounding it is consistent with inflammation. Limited images of the right hemiscrotum reveal no hydrocele. The right testicle is grossly unremarkable. IMPRESSION: 1. 4.6 x 1.9 x 1.8 cm immediately subcutaneous collection along the perineum consistent with an abscess. This does not appear associated with the right hemiscrotum on these images. Electronically signed by: Flavio Sun MD (02/25/2019 10:19 AM) [facility]
[2019-02-25 13:42] VITALS: BP 122/69
== END 2019-02-25 13:35 | disposition short-term general hospital (02) ==
LOC: ER 07:08
DX: N49.2 Inflammatory disorders of scrotum (principal); D68.51 Activated protein C resistance; F10.20 Alcohol dependence, uncomplicated; F17.210 Nicotine dependence, cigarettes, uncomplicated; Y90.9 Presence of alcohol in blood, level not specified
CPT/HCPCS: 36415; 76870; 80053; 81001; 83605; 85007; 85025; 87040; 96365; 96366; 96367; 96375; 96376; 99285; J3010; J3370; J3490; J7040; J7030

== ENCOUNTER → 2020-11-11 | Outpatient (CLI) | payer OTHER ==
--- NOTE | 2020-11-11 17:06 | RAD ---
US DPLX VENOUS EXTREMITY LOWER LT History: Reason: LT LEG PAIN, FACTOR 5 / Spl. Instructions: / History: Comparison: None. Technique: Multiple longitudinal and transverse high resolution real-time images of the venous system of left lower extremity were obtained with color and Doppler sampling. Findings: Nonocclusive thrombus within the superficial femoral vein. Occlusive thrombus within the popliteal an d calf veins. Patent common femoral vein. Impression: 1. Deep vein thrombosis throughout the left lower extremity. FOR INTERNAL CODING PURPOSES Critical result: Findings discussed with Chaitanya Rosa at 11/11/2020 5:03 PM. RESULT CODE: (C) Electronically signed by: Matt Ferreira DO (11/11/2020 5:04 PM) [facility]
== END ==
LOC: US 16:26
PROVIDERS: ATTEND Physician Assistant
DX: I82.412 Acute embolism and thrombosis of left femoral vein (principal); M79.89 Other specified soft tissue disorders; D68.51 Activated protein C resistance
CPT/HCPCS: 93971